=== PATIENT | female | born 1970 | race American Indian/Alaskan Native ===

== ENCOUNTER 2016-11-27 13:34 | Emergency (ER) | payer BC ==
[2016-11-27 13:46] VITALS: BP 124/80
[2016-11-27 15:05] LABS: Basophils % (Auto) 0.5 % (0.0-1.8); Eosinophils % (Auto) 1.3 % (0.0-4.3); Hematocrit 37.1 % (30.3-42.9); Hemoglobin 12.2 gm/dl (10.1-14.3); Mean Corpuscular HGB Conc 33 % (30-34); Mean Corpuscular Hemoglobin 27 pg (28-32); Mean Corpuscular Volume 81 fl (79-97); Platelet Count 239 K/mm3 (140-440); Red Blood Count 4.55 M/mm3 (3.65-5.03); Red Cell Distribution Width 14.9 % (13.2-15.2); White Blood Count 6.3 K/mm3 (4.5-11.0)
[2016-11-27 15:10] LABS: Anion Gap 18 mmol/L; BUN/Creatinine Ratio 15.71; Blood Urea Nitrogen 11 mg/dL (7-17); Calcium 9.3 mg/dL (8.4-10.2); Carbon Dioxide 24 mmol/L (22-30); Chloride 101.1 mmol/L (98-107); Glucose 84 mg/dL (65-100); Potassium 4.2 mmol/L (3.6-5.0); Sodium 139 mmol/L (137-145)
--- NOTE | 2016-11-27 16:45 | Emergency Department Report ---
Entered by FARHEEN VENTURA, acting as scribe for SAHRA MACE PA. Chief Complaint: Chest Pain Stated Complaint: CHEST PAIN/SOB Time Seen by Provider: 11/27/16 13:57 - HPI History of Present Illness: Patient c/o intermittent, waxing and waning, 6/10 sharp mid-chest pain and SOB since yesterday. Chest pain is aggravated with deep breaths. Patient states she has been busy all week due to of family member, so she hasn't had much rest. Denies Hx of chest pain Denies N/V - ROS Review of Systems: All systems are negative unless stated in the HPI above. - Exam Vital Signs: Vital Signs 11/27/16 13:42 Temperature 97.8 F Pulse Rate 67 Respiratory 20 Rate Blood Pressure 124/80 O2 Sat by Pulse 100 Oximetry Physical Exam: GENERAL: Patient is alert and oriented x 3. No apparent distress, normal gait, atraumatic. Chest: No chest wall deformity. No reproducible chest wall tenderness. LUNGS: Symmetrical with respiration. No wheezing, rales or crackles, CTAB. HEART: Regular rate and rhythm with normal S1/S2 present. No murmurs, rubs, or gallops. MSE screening note: Focused history and physical exam performed. Due to findings the following was ordered: ED Medical Decision Making - EKG Data EKG shows normal: sinus rhythm Rate: normal - EKG Data When compared to previous EKG there are: no significant change Interpretation: no acute changes, normal EKG - Medical Decision Making Patient screened by provider in triage area. Labs and chest X-ray ordered and sent in for patient. Patient sent to be seen by MD on main ED side. ED Disposition for MSE Condition: Stable This documentation as recorded by the scribe,FARHEEN VENTURA,accurately reflects the service I personally performed and the decisions made by RODRI bledsoe OYINLOLA A, PA.
== END 2016-11-27 21:30 | disposition left against medical advice (07) ==
LOC: ED 13:34
DX: R07.89 Other chest pain (principal); R06.02 Shortness of breath; Z53.21 Procedure and treatment not carried out due to patient leaving prior to being seen by health care provider
CPT/HCPCS: 36415; 80048; 84484; 84703; 85025; 93005; 93010

== ENCOUNTER 2018-07-14 17:15 | Emergency (ER) | payer BC, OTHER ==
[2018-07-14 17:22] VITALS: BP 102/67
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
[2018-07-14] MEDS ORDERED: MOTRIN PO ONE (19:31)
[2018-07-14] MEDS ORDERED: PERCOCET 5/325 PO ONE (19:31)
== END 2018-07-14 19:57 | disposition home or self-care (01) ==
LOC: ED 17:15
DX: S39.012A Strain of muscle, fascia and tendon of lower back, initial encounter (principal); S20.219A Contusion of unspecified front wall of thorax, initial encounter; D57.3 Sickle-cell trait; Z98.51 Tubal ligation status; V49.59XA Passenger injured in collision with other motor vehicles in traffic accident, initial encounter; Y93.89 Activity, other specified; Y92.410 Unspecified street and highway as the place of occurrence of the external cause; Y99.8 Other external cause status
CPT/HCPCS: 71046; 72100; 93005; 93010